=== PATIENT | male | born 1970 ===

== ENCOUNTER 2024-12-02 12:59 | Emergency (ER) | payer BC ==
[~2024-12-02] VITALS: Ht 167.6 cm; Wt 127.0 kg
[2024-12-02 13:32] VITALS: TEMP 36.7; O2SAT 99
[2024-12-02 15:01] VITALS: BP 196/102; PULSE 71; RESP 12; O2SAT 100
== END 2024-12-02 15:08 | disposition home or self-care (01) ==
LOC: ER 12:59
DX: I10 Essential (primary) hypertension (principal); Z90.79 Acquired absence of other genital organ(s); Z98.890 Other specified postprocedural states
CPT/HCPCS: 93005; 99283